=== PATIENT | female | born 1955 | race Caucasian/White ===

== ENCOUNTER 2016-12-22 01:38 | Inpatient (IN) | payer MEDICARE ==
--- NOTE | ~2016-12-22 | A ---
[facility] Nutrition Therapy DATE: 12/25/16 Patient: YOLANDE MCRAE Physician: GEORGIE Address: [address] Room/Bed: [address], Zip: [place] [address] Admit Date: 12/22/16 Date of : 57 Height: Weight: 119 54.43 NUTRITIONAL ASSESSMENT: REASON: CONSULT "LARGE WOUND, LOW PROTEIN, MULTI MED ISSUES" PATIENT ADMITTED FOR PSYCHOSIS AND DELUSIONS PMH: VIT B12 DEF, HEP C, COPD, CIRRHOSIS, HYPOTHYROIDISM, CHRONIC PAIN, QUESTIONABLE CVA AND KS IN 2013, CHOLECYSTECTOMY, HTN Anthropometrics: HT: 5'4", WT: 119#, BMI: 19.8, %IBW: 99 Labs: 12/24/16 - NA: 131, ALB: 3.4, AST: 92 Meds: COGENTIN, ABILIFY, HALOPERIDOL, KLOR-CON, SYNTHROID, FUROSEMIDE, VALIUM, CIPRO Assessment: CHART REVIEWED, EVENTS NOTED. PATIENT IS A 61 Y/O FEMALE ADMITTED FOR PSYCHOSIS AND DELUSIONS. SHE PRESENTED WITH BIZARRE AND ERRATIC BEHAVIORS, DELUSIONAL, AND PARANOID. PATIENT IS CURRENTLY ON SSI, LIVES WITH HER AND SISTER, AND DENIES SUBSTANCE ABUSE. PATIENT IS NOTED TO BE A POOR HISTORIAN, AND SHE HAS BEEN NON-COMPLIANT WITH MEDICATIONS PRIOR TO ADMIT D/T AMS. PER NEEDS ASSESSMENT PATIENT STATED A FAIR APPETITE WITH A 10# WEIGHT LOSS X LAST FEW WEEKS, AND HAS NOT BEEN SLEEPING WELL. WEIGHT HX PER [facility] SHOWS A STABLE WEIGHT OVER LAST YEAR. THIS RD DISCUSSED PATIENT WITH NURSING. NURSING REPORTED PATIENT HAS A UTI AND A WOUND TO HER LEG, WHICH HAS NOT HEALED AND IS CURRENTLY INFECTED. SHE IS ON ANTIBIOTICS. WOUND TO PATIENT'S LEG WAS DESCRIBED A LARGE GASH AND HAD NOT BEEN STAGED. THERE IS NO FURTHER SKIN BREAKDOWN NOTED ATT. PATIENT NEEDS PROMPTING TO EAT AND SHE HAS HAD FAIR PO INTAKES SINCE ADMIT. AT TIMES SHE WILL CLAIM THAT THE FOOD AND TRAY ISN'T HERS AND THAT SOMEONE ELSE'S TRAY WAS BROUGHT TO HER. PATIENT'S CURRENT PSYCH MEDS, FUROSEMIDE, AND SYNTHROID MAY CAUSE WEIGHT AND APPETITE FLUCTUATIONS. THIS RD WAS ASKED TO ASSESS PATIENT D/T LOW PROTEIN. LABS ON 12/24/16 INDICATED AN ALBUMIN LEVEL OF 3.4, WHICH IS NOT SIGNIFICANTLY DECREASED. A NORMAL ALBUMIN LEVEL IS 3.5-5.0, PATIENT'S TOTAL PROTEIN WAS WNL, AND CURRENT RESEARCH INDICATES THAT ALBUMIN LEVELS DO NOT INDICATE NUTRITIONAL STATUS. PATIENT'S SODIUM WAS 131, WHICH IS LOW. THIS COULD BE CAUSED BY DIURETIC USE AND WATER RETENTION. PATIENT'S BMI IS WITHIN A HEALTHY RANGE OF 19-25 AND SHE IS 99% OF HER IBW. PATIENT IS CURRENTLY ON A REGULAR DIET WITH LARGE PORTION ENTREES, AND SHE RECEIVES ENSURE TID. THERE IS CURRENTLY NO C/O N/V/D OR ANY OTHER GI ISSUES NOTED ATT. Dx: INADEQUATE NUTRIENT INTAKE R/T CURRENT CONDITION, DX AEB FAIR PO INTAKE AND APPETITE, SELF-REPORTED WEIGHT LOSS Intervention: 1. REGULAR DIET, 2. SUPPLEMENTATION, 3. MEDS PER MD, 4. PSYCH [facility] Nutrition Therapy DATE: 12/25/16 Patient: YOLANDE Munroe CLEMENTINA Physician: GEORGIE Address: [address] [place] [address] Room/Bed: [address], Zip: [place] [address] Admit Date: 12/22/16 Date of : [birth year] Height: Weight: 119 54.43 Monitoring, Evaluation and Goals: 1. ADEQUATE PO INTAKES >50% OF MEALS 2. PREVENT, CORRECT MICRO/MACRO NUTRIENT DEFICIENCIES 3. MAINTAIN CURRENT WEIGHT, PREVENT WEIGHT LOSS MONITOR: WEIGHTS, LABS, PO/FLUID INTAKES Recommendations: 1. CONTINUE REGULAR DIET WITH ENSURE TID TOLERATED. RECOMMEND D/CING LARGE PORTION ENTREES D/T NO NUTRITIONAL NEED FOR AN EXCESSIVE AMOUNT OF CALORIES, AND PATIENT'S FAIR APPETITE. PATIENT MAY BE OVERWHELMED BY LARGER PORITONS ON TRAY. IF SHE HAS C/O HUNGER, OFFER SNACKS BETWEEN MEALS 2. CONTINUE TO PROMPT PATIENT AND ENCOURAGE ADEQUATE PO AND FLUID INTAKES 3. OBTAIN WEIGHTS ROUTINELY (EVERY 3-4 DAYS) 4. OBTAIN NEW BMP TO ASSESS PATIENT'S NUTRITIONAL STATUS 5. CONSIDER ADDING A MVI TO PATIENT'S MEDICATION REGIMEN FOR ADDED NUTRIENT SUPPORT AND TO PROMOTE WOUND HEALING RD TO F/U PER PROTOCOL AND PRN R/T PATIENT MILD/MODERATELY COMPROMISED Respectfully, MAHESH DAWSON, RD, LD Food and Nutritional Services Psychiatric cc: client file
--- NOTE | ~2016-12-22 | CO ---
Unit #: [id number] #: [id number] Patient: NINI MCRAE [id number] [place] [address] [id number] I MR#: [id number] NAME: NINI MCRAE. ROOM: 15 Age: 61 Sex: F Admission Date: 12/22/2016 : 1955 Attending Physician: Ney Reyes M.D. Primary Care Physician: Codi Alonso M.D. Consultation Date: 12/24/2016 CONSULTATION REPORT SUBJECTIVE Nini is a 61-year-old with an abnormal urinalysis upon admission. We have been asked to assess and treat. She has had complaints of urgency and frequency. There have been no recorded increased temperatures. OBJECTIVE GENERAL: Alert, well nourished, in no apparent distress. VITAL SIGNS: Blood pressure 130/70, heart rate 80, respirations 16, temperature 98.6. ABDOMEN: Soft, nontender. BACK: Negative CVA tenderness. DIAGNOSTIC STUDIES LABORATORY RESULTS: Urinalysis; 4+ bacteria, 10 to 25 wbc's. ASSESSMENT Urinary tract infection. PLAN Cipro 500 mg one p.o. b.i.d. x3 days. We were also asked to see her concerning her skin tear. This was addressed under her H and P dated 12/22/2016. Dictated by... Rosi Lizama P.A.-C. for Bryant Armijo/dannielle TD: 12/27/2016 01:32 JOB #: [id number] Unit #: [id number] #: [id number] Patient: NINI MCRAE CONSULTATION REPORT Page 1 of 1 X Rosi Lizama CONSULTATION REPORT
--- NOTE | ~2016-12-22 | PN ---
Unit #: [id number] #: [id number] Patient: NINI MCRAE [id number] [facility] [address] [place] [address] [id number] I MR#: [id number] NAME: NINI MCRAE. ROOM: P122 Age: 61 Sex: F Admission Date: 12/22/2016 : 1955 Attending Physician: Ney Reyes M.D. Admitting Physician: Ney Reyes M.D. Primary Care Physician: Bryant Murguia PROGRESS NOTES DATE 12/27/2016 DISCUSSION Nini Mcrae is a 61-year-old female, seen on 12/27/2016. The patient interviewed, chart reviewed, and obtained information from the nursing staff. The patient was compliant and cooperative. Mood sad and dysphoric, flat affect, and guarded. The patient's vital signs stable. The patient continues to be delusional, paranoid, isolative, and guarded. The patient compliant with medication. No aggressive behavior. REVIEW OF SYSTEMS Complete review of systems unremarkable. MENTAL STATUS EXAMINATION General appearance: Patient dressed in hospital attire. Attention span and concentration, poor. Orientation in place and person. Mood and affect, labile. Speech, rapid. Thought process, circumstantial. The patient denied any thoughts of harming self or others but guarded and paranoid, delusional, paranoid delusions. Recent and remote memory, poor. Insight and judgment, poor. DIAGNOSIS Schizophrenia, chronic paranoid type. ASSESSMENT/PLAN Advised to continue with the current medication and therapeutic protocol and will monitor response to medication, and make further adjustment of medication. Dictated by... Bryant Horowitz/graciela TD: 12/30/2016 07:41 Unit #: [id number] #: [id number] Patient: NINI MCRAE JOB #: [id number] DARNELL PROGRESS NOTES Page 1 of 1 X Ney Reyes MD PROGRESS NOTE
--- NOTE | ~2016-12-22 | CO ---
Unit #: [id number] #: [id number] Patient: NINI MCRAE [id number] [place] [address] [id number] I MR#: [id number] NAME: NINI MCRAE. ROOM: 32 Age: 61 Sex: F Admission Date: 12/22/2016 : 1955 Attending Physician: Ney Reyes M.D. Primary Care Physician: Codi Alonso M.D. Consultation Date: 01/01/2017 CONSULTATION REPORT SUBJECTIVE Nini is a 61-year-old, who was admitted with a significant skin tear along her right palm. On 12/31/2016, nursing staff was concerned because there was increased redness and swelling in the left leg. We were asked to examine her again. Please see consult note dated 12/31/2016. Our plan at that time was to continue current treatment of Medihoney and dressing daily and continue Levaquin which was increased to 750 mg p.o. daily on the . We would continue to follow. The following morning staff received the order from attending psychiatrist and the patient was sent to the emergency room because of the redness and swelling in her leg. After IV infusion of vancomycin and collection of appropriate blood work, she was sent back to [facility]. Lab work in the emergency room showed a WBC 4.1, H/H 11.6/35.1. X-ray of the left tib-fib was within normal limits. Blood cultures showed no growth after 24 hours. At this time, we will continue Medihoney to the wound and cover with Mepilex dressing. We will also apply a zinc oxide Unna boot and plan to change it every 4 to 5 days. We are doing this to promote healing and reduce the swelling in the affected leg. We will continue to follow. Dictated by... Rosi Lizama P.A.-C. for Bryant Armijo/dannielle TD: 01/03/2017 05:47 JOB #: [id number] CONSULTATION REPORT Page 1 of 1 X Rosi Lizama X CONSULTATION REPORT
--- NOTE | ~2016-12-22 | PN ---
Unit #: [id number] #: [id number] Patient: NINI MCRAE [id number] [facility] [address] [place] [address] [id number] I MR#: [id number] NAME: NINI MCRAE. ROOM: [facility] Age: 61 Sex: F Admission Date: 12/22/2016 : 1955 Attending Physician: Ney Reyes M.D. Admitting Physician: Ney Reyes M.D. Primary Care Physician: Bryant Murguia PROGRESS NOTES DATE OF SERVICE 01/01/2017 DISCUSSION Ms. Nini Mcrae is a 61-year-old female seen on 01/01/2017. The patient interviewed, chart reviewed. Obtained information from nursing staff. The patient dressed in hospital attire. Withdrawn, isolative, guarded. The patient still having delusional thinking. Disorganized thought process. Guarded, paranoid. The patient seclusive, isolative, guarded. Seems to be attending to internal stimuli. Behavior was argumentative, cursing, anger, confused, guarded, paranoid. Complete Review of Systems: Unremarkable. MENTAL STATUS EXAMINATION General Appearance: The patient dressed in hospital attire. Attention span, concentration: Poor. Oriented in place and person. Mood and affect labile. Speech: Rapid. Thought process: Circumstantial. The patient delusional, paranoid. Please see above for detail. Recent and remote memory: Poor. Insight and judgment: Poor. DIAGNOSIS Schizophrenia, chronic, paranoid type. ASSESSMENT/PLAN Advised to continue with current medication and therapeutic protocol. If needed, consider further adjustment of medication. Dictated by... Bryant Horowitz/minerva TD: 01/04/2017 10:36 JOB #: [id number] Unit #: [id number] #: [id number] Patient: NINI MCRAESHILPA PROGRESS NOTES Page 1 of 1 X Ney Reyes MD PROGRESS NOTE
--- NOTE | ~2016-12-22 | HP ---
Unit #: [id number] #: [id number] Patient: NINI MCRAE [id number] [place] [address] [id number] I MR#: [id number] NAME: NINI MCRAE. ROOM: 32 Age: 61 Sex: F Admission Date: 12/22/2016 : 1955 Attending Physician: Ney Reyes M.D. Admitting Physician: Ney Reyes M.D. Primary Care Physician: Codi Alonso M.D. HISTORY AND PHYSICAL HISTORY OF PRESENT ILLNESS Nini is a 61 year old admitted to [address] [place] [address] with psychotic behavior. She is a poor historian so her history is taken from her chart. PAST MEDICAL HISTORY 1. Vitamin B12 deficiency. 2. Hepatitis C treated by Dr. Chapin. 3. Chronic pain 4. COPD 5. Cirrhosis. 6. Hypothyroidism 7. Questionable stroke and CA, 2013. PAST SURGICAL HISTORY 1. Umbilical hernia repair. 2. Bladder repair. 3. Cholecystectomy. ALLERGIES Sulfa, penicillin, fish, morphine, Celexa. SOCIAL HISTORY Smokes one-half pack per day. Denies alcohol and illicit drug use. FAMILY HISTORY Medically noncontributory. REVIEW OF SYSTEMS She does not answer questions appropriately. There are no reports of nausea, vomiting or diarrhea. She has had no cough or increased temperature. CURRENT MEDICATIONS 1. Cogentin 1 mg b.i.d. 2. Abilify 10 mg b.i.d. 3. Haldol 5 mg b.i.d. 4. Colace 100 mg b.i.d. 5. KCL 20 mEq daily 6. Advair Diskus b.i.d. 7. Florastor 250 mg b.i.d. 8. Synthroid 0.025 mg q day 9. Lasix 40 mg b.i.d. Unit #: [id number] #: [id number] Patient: NINI MCRAE 10. Ibuprofen p.r.n. 11. Proventil inhaler p.r.n. 12. Roxicodone 10 1 p.o. q.i.d. p.r.n. 13. Valium 5 mg b.i.d. p.r.n. 14. Lioresal 20 mg b.i.d. p.r.n. 15. Milk of Magnesia p.r.n. 16. Maalox p.r.n. 17. Tylenol p.r.n. PHYSICAL EXAMINATION GENERAL: Alert, well-nourished, in no apparent distress. VITAL SIGNS: Blood pressure 136/80, heart rate 80, respirations 16, temperature 98.6. WEIGHT: 119 pounds. HEIGHT: 5'4". SKIN: Warm and dry without rash or lesion. HEENT: Normocephalic. TMs not viewed. Oral and nasal passages clear. Conjunctivae clear. Pupils equal, round and reactive to light and accommodation. Extraocular movements intact. NECK: Supple without lymphadenopathy or thyromegaly. HEART: Regular rate and rhythm without murmur. LUNGS: Clear. ABDOMEN: Soft, nontender. : Not done. EXTREMITIES: No evidence of cyanosis, clubbing or edema. Moves all extremities without focal deficit. NEUROLOGICAL: Unable to complete extended exam. She does move all extremities without focal deficit. Hand psychiatric technician is equal and gait is normal. IMPRESSION Psychiatric admission. RECOMMENDATIONS PSYCHIATRIC: Per psychiatrist. MEDICAL: I see no contraindications to participating in facility's activities. MEDICAL PROGNOSIS Good. MEDICAL CONDITION Stable. Dictated by... Rosi Lizama P.A.-C. for Bryant Armijo/damien TD: 12/23/2016 00:16 JOB #: [id number] Unit #: [id number] #: [id number] Patient: NINI MCRAE HISTORY AND PHYSICAL Page 1 of 1 X Rosi Lizama HISTORY AND PHYSICAL
--- NOTE | ~2016-12-22 | PN ---
Unit #: [id number] #: [id number] Patient: NINI MCRAE [id number] [facility] [address] [place] [address] [id number] I MR#: [id number] NAME: NINI MCRAE. ROOM: 32 Age: 61 Sex: F Admission Date: 12/22/2016 : 1955 Attending Physician: Ney Reyes M.D. Admitting Physician: Ney Reyes M.D. Primary Care Physician: Bryant Murguia PROGRESS NOTES DATE OF SERVICE: 01/06/2017 DISCUSSION Ms. Nini Mcrae is a 61-year-old female, seen on 01/06/2017. The patient interviewed, chart reviewed, and obtained information from nursing staff. The patient was tearful, sad, dysphoric, anxious, but compliant and cooperative. The patient dressed in hospital attire. Mood was sad, dysphoric, flat affect. The patient is compliant with medication, still having residual delusions. The patient, according to staff report, was cooperative. Vital signs stable. The patient still needs encouragement, thought circumstantial, attention seeking, redirectable, but denied any suicidal or homicidal ideation or any auditory or visual hallucination. Complete review of systems unremarkable. MENTAL STATUS EXAMINATION General appearance, the patient dressed casually. Attention span and concentration, fair. Oriented in place and person. Mood and affect, labile. Speech, rapid. Thought process, circumstantial. Association, guarded, but denied any thoughts of harming self or others. Recent and remote memory, poor. Insight and judgment, poor. DIAGNOSIS Schizophrenia, chronic paranoid type. ASSESSMENT AND PLAN Advised to continue with current medication and therapeutic protocol. If needed, consider further adjustment of medication. Plan is to consider discharge this week and we will discuss with family. Dictated by... Ney eRyes M.D. LETTY/dannielle TD: 01/06/2017 17:33 JOB #: [id number] Unit #: [id number] #: [id number] Patient: NINI MCRAE PROGRESS NOTES Page 1 of 1 X Ney Reyes MD PROGRESS NOTE
--- NOTE | ~2016-12-22 | CO ---
Unit #: [id number] #: [id number] Patient: NINI MCRAE [id number] [place] [address] [id number] I MR#: [id number] NAME: NINI MCRAE. ROOM: 15 Age: 61 Sex: F Admission Date: 12/22/2016 : 1955 Attending Physician: Ney Reyes M.D. Primary Care Physician: Codi Alonso M.D. Consultation Date: 12/25/2016 CONSULTATION REPORT SUBJECTIVE Nini is a 61-year-old who was reported to have a discharge from her breast. This was reported by one nurse. We have been asked to assess and give recommendations. She has no known breast pathology. Her mammogram history is not known. She has had no recorded increased temperatures. OBJECTIVE GENERAL: Alert, confused 61-year-old, appearing much older than her stated age, otherwise no apparent distress. VITAL SIGNS: Blood pressure 130/60, heart rate 92, respirations 16, T-max 98.6. BREASTS: Skin is intact without rashes or lesions. Symmetrical. Minimal tenderness in the left breast, but no discharge is noted from either nipple. ASSESSMENT Normal exam. PLAN The patient can follow up with PCP/THRASHER FEEDER for complete evaluation. Dictated by... Rosi Lizama P.A.-C. for Bryant Armijo/dannielle TD: 12/27/2016 02:37 JOB #: [id number] CONSULTATION REPORT Page 1 of 1 X Rosi Lizama X CONSULTATION REPORT
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
--- NOTE | ~2016-12-22 | PN ---
Unit #: [id number] #: [id number] Patient: NINI MCRAE [id number] [facility] [address] [place] [address] [id number] MR#: [id number] NAME: NINI MCRAE. ROOM: 15 Age: 61 Sex: F Admission Date: 12/22/2016 : 1955 Attending Physician: Ney Reyes M.D. Admitting Physician: Ney Reyes M.D. Primary Care Physician: Bryant Murguia PROGRESS NOTES DATE 12/26/2016 DISCUSSION Ms. Nini Mcrae is a 61-year-old female seen on 12/26/2016. Patient continues to have poor boundaries, going into other peoples rooms, guarded, paranoid. Patient needing redirection. Patient having difficulty sitting in group. Continues to be delusional, paranoid. Complete review of system unremarkable. MENTAL STATUS EXAMINATION General appearance, patient dressed casually in hospital attire. Attention span, concentration poor. Orientation in place and person. Mood and affect was labile. Speech rapid. Thought process circumstantial. Patient denied any thoughts of harming self or others but guarded, paranoid, delusional. Recent and remote memory poor. Insight and judgement poor. DIAGNOSIS Schizophrenia, chronic paranoid type. ASSESSMENT/PLAN Advised to continue with current medication and therapeutic protocol. Will monitor response to medication and make further adjustment of medication. Dictated by... Bryant Horowitz/che TD: 12/27/2016 17:31 JOB #: [id number] Unit #: [id number] #: [id number] Patient: NINI MCRAE PROGRESS NOTES Page 1 of 1 X Ney Reyes MD X PROGRESS NOTE
--- NOTE | ~2016-12-22 | PN ---
Unit #: [id number] #: [id number] Patient: NINI MCRAE [id number] [facility] [address] [place] [address] [id number] I MR#: [id number] NAME: NINI MCRAE. ROOM: 32 Age: 61 Sex: F Admission Date: 12/22/2016 : 1955 Attending Physician: Ney Reyes M.D. Admitting Physician: Ney Reyes M.D. Primary Care Physician: Bryant Murguia PROGRESS NOTES DATE OF SERVICE: 01/02/2017 DISCUSSION Ms. Nini Mcrae is a 61-year-old female, seen on 01/02/2017. The patient interviewed, chart reviewed, and obtained information from nursing staff. The patient's thoughts were more goal directed. The patient was compliant, cooperative, redirectable. Vital signs stable; temperature 97.8, respirations 18, and blood pressure 83/52. Admitted psychosis, guarded, paranoid. Showing some improvement in her thought process. Denied any thoughts of harming self or others. The patient's behavior was argumentative. Complete review of systems unremarkable. MENTAL STATUS EXAMINATION General appearance; the patient dressed casually, in hospital attire. Mood and affect were labile. Speech was rapid. Thought process, circumstantial. Thought content, the patient denied any thoughts of harming self or others, but guarded, paranoid, delusional. Recent and remote memory, poor. Insight and judgment, poor. DIAGNOSIS Schizophrenia, chronic paranoid type. ASSESSMENT/PLAN Plan is to continue with current medication with a plan to consider discharge next week on Friday if the patient continues to make some progress. Dictated by... Bryant Horowitz/dannielle TD: 01/02/2017 22:31 JOB #: [id number] Unit #: [id number] #: [id number] Patient: NINI MCRAE PROGRESS NOTES Page 1 of 1 X Ney Reyes MD X PROGRESS NOTE
--- NOTE | ~2016-12-22 | PN ---
Unit #: [id number] #: [id number] Patient: NINI MCRAE [id number] [facility] [address] [place] [address] [id number] I MR#: [id number] NAME: NINI MCRAE. ROOM: 32 Age: 61 Sex: F Admission Date: 12/22/2016 : 1955 Attending Physician: Ney Reyes M.D. Admitting Physician: Ney Reyes M.D. Primary Care Physician: Bryant Murguia PROGRESS NOTES DATE 01/04/2017 DISCUSSION Nini Mcrae is a 61-year-old female, seen on 01/04/2017. The patient interviewed, chart reviewed, and obtained information from the nursing staff. The patient's mood sad and dysphoric, flat affect, guarded. The patient's vital signs, 98.4, 83, 16, and 101/59. The patient continues to be isolative, flat affect, sad and dysphoric. REVIEW OF SYSTEMS Complete review of systems unremarkable. MENTAL STATUS EXAMINATION General appearance: Patient dressed casually. Attention span and concentration, fair. Oriented to place and person. Mood and affect, sad and dysphoric. Speech, monotone. Thought process, concrete. The patient denied any thoughts of harming self or others but still somewhat guarded, paranoid. Recent and remote memory, poor. Insight and judgment, poor. DIAGNOSIS Schizophrenia, paranoid type. ASSESSMENT/PLAN Advised to continue with the current medication and therapeutic protocol and if needed consider further adjustment of medication. Dictated by... Bryant Horowitz/graciela TD: 01/07/2017 06:15 JOB #: [id number] Unit #: [id number] #: [id number] Patient: NINI MCRAESHILPA PROGRESS NOTES Page 1 of 1 X Ney Reyes MD PROGRESS NOTE
--- NOTE | ~2016-12-22 | PN ---
Unit #: [id number] #: [id number] Patient: NINI MCRAE [id number] [facility] [address] [place] [address] [id number] I MR#: [id number] NAME: NINI MCRAE. ROOM: 32 Age: 61 Sex: F Admission Date: 12/22/2016 : 1955 Attending Physician: Ney Reyes M.D. Admitting Physician: Ney Reyes M.D. Primary Care Physician: Bryant Murguia PROGRESS NOTES DATE OF SERVICE: 01/03/2017 DISCUSSION Ms. Nini Mcrae is a 61-year-old female, seen on 01/03/2017. The patient interviewed, chart reviewed, and obtained information from nursing staff. The patient was sad, depressed, flat, withdrawn, dressed in hospital attire. The patient's mood was labile, still confusion, paranoia, mood lability. The patient is still having delusions. Vital signs stable; temperature 98.4, pulse 83, respirations 16, and blood pressure 101/59. The patient was tearful, sad, and dysphoric. Complete review of systems unremarkable. MENTAL STATUS EXAMINATION General appearance, the patient is dressed in hospital attire. Hygiene and grooming, poor. Attention span and concentration, poor. Oriented in place and person. Mood and affect, labile. Speech, rapid. Thought process, circumstantial. The patient denied any thoughts of harming self or others, but having delusions, paranoia, mood lability. Recent and remote memory, poor. Insight and judgment, poor. DIAGNOSIS Schizophrenia, chronic paranoid type. ASSESSMENT AND PLAN Advised to continue with current medication and therapeutic protocol. If needed, consider further adjustment of medication. Dictated by... Bryant Horowitz/dannielle TD: 01/03/2017 17:30 JOB #: [id number] Unit #: [id number] #: [id number] Patient: NINI MCRAE PROGRESS NOTES Page 1 of 1 X Ney Reyes MD PROGRESS NOTE
--- NOTE | ~2016-12-22 | PN ---
Unit #: [id number] #: [id number] Patient: NINI MCRAE [id number] [facility] [address] [place] [address] [id number] I MR#: [id number] NAME: NINI MCRAE. ROOM: P122 Age: 61 Sex: F Admission Date: 12/22/2016 : 1955 Attending Physician: Ney Reyes M.D. Admitting Physician: Ney Reyes M.D. Primary Care Physician: Bryant Murguia PROGRESS NOTES DATE 12/28/2016 DISCUSSION Ms. Nini Mcrae is a 61-year-old white female seen on 12/28/2016. The patient interviewed, chart reviewed. Obtained information from nursing staff. The patient was compliant and cooperative redirectable. Mood sad, dysphoric, flat affect. Vital signs 97.8, 81, 16, 96/53. The patient continues to be guarded, paranoid, but cooperative no aggressive behavior. Tolerating medication fairly well but still having delusion, paranoia, isolative. Complete review of systems unremarkable. MENTAL STATUS EXAMINATION General appearance, the patient dressed in hospital attire. Attention span and concentration was poor. Oriented to place and person. Mood and affect sad, dysphoric, flat. Speech rapid, circumstantial. Thought process the patient denied any thoughts of harming self or others but delusional paranoid (1)____ delusional. Recent and remote memory poor. Insight and judgement poor. DIAGNOSES Schizophrenia chronic paranoid type. ASSESSMENT/PLAN Advise to continue with current medication and therapeutic protocol. We will monitor response to medication and make further adjustment of medication. Dictated by... Bryant Horowitz/damien TD: 12/31/2016 04:49 JOB #: [id number] Unit #: [id number] #: [id number] Patient: NINI MCRAE PROGRESS NOTES Page 1 of 1 X Ney Reyes MD PROGRESS NOTE
--- NOTE | ~2016-12-22 | PN ---
Unit #: [id number] #: [id number] Patient: NINI MCRAE [id number] [facility] [address] [place] [address] [id number] I MR#: [id number] NAME: NINI MCRAE ROOM: 15 Age: 61 Sex: F Admission Date: 12/22/2016 : 1955 Attending Physician: Ney Reyes M.D. Admitting Physician: Ney Reyes M.D. Primary Care Physician: Bryant Murguia PROGRESS NOTES DATE 12/24/2016 DISCUSSION Nini Mcrae is a 61-year-old female seen on 12/24/2016. Patient interviewed. Chart reviewed. Obtained information from nursing staff. Patient unable to give any reliable information, disorganized thought process, delusional, paranoid, still feeling people are against her, after her. Patient isolative, guarded, seclusive, attending to internal stimuli. Patient was alert, oriented in time, place and person but still paranoid. Attended some groups. Patient currently on MIW. Complete review of system unremarkable. MENTAL STATUS EXAMINATION General appearance, patient dressed casually. Attention span, concentration poor. Oriented in place and person. Mood and affect was sad, dysphoric. Speech monotone. Thought process concrete. Patient denied any thoughts of harming self or others but guarded, paranoid, delusional. Recent and remote memory poor. Insight and judgement poor. DIAGNOSES 1. Psychosis NOS. 2. Schizophrenia, paranoid type. ASSESSMENT/PLAN Advised to continue with current medication and therapeutic protocol. Will monitor response to medication and make further adjustment of medication and monitor for compliance. Dictated by... Bryant Horowitz/che TD: 12/25/2016 17:53 JOB #: [id number] Unit #: [id number] #: [id number] Patient: NINI MCRAESHILPA PROGRESS NOTES Page 1 of 1 X Ney Reyes MD PROGRESS NOTE
--- NOTE | ~2016-12-22 | PN ---
Unit #: [id number] #: [id number] Patient: NINI MCRAE [id number] [facility] [address] [place] [address] [id number] I MR#: [id number] NAME: NINI MCRAE. ROOM: 32 Age: 61 Sex: F Admission Date: 12/22/2016 : 1955 Attending Physician: Ney Reyes M.D. Admitting Physician: Ney Reyes M.D. Primary Care Physician: Bryant Murguia PROGRESS NOTES DATE OF SERVICE 12/31/2016 DISCUSSION Nini Mcrae is a 61-year-old female seen on 12/31/2016. The patient continues to be delusional, paranoid, mood labile, sad, dysphoric. The patient reported having pain in her leg and then noticed swelling in her legs. The patient has an old wound. Subsequently the patient was sent to [facility] for further treatment. The patient returned with antibiotic. The patient continues to have above-mentioned symptom. Complete Review of Systems: Unremarkable. MENTAL STATUS EXAMINATION General Appearance: The patient dressed in hospital attire. Attention span, concentration: Poor. Orientation in place and person. Mood and affect labile. Speech: Rapid. Thought process: Circumstantial, guarded, delusional, paranoid. Disorganized behavior. Thought process: Argumentative. Recent and remote memory: Poor. Insight and judgment: Poor. DIAGNOSIS Schizophrenia, chronic, paranoid type. ASSESSMENT/PLAN Advised to continue with current medication and therapeutic protocol. If needed, consider further adjustment of medication. Dictated by... Bryant Horowitz/minerva TD: 01/02/2017 10:02 JOB #: [id number] Unit #: [id number] #: [id number] Patient: NINI MCRAE PROGRESS NOTES Page 1 of 1 X Ney Reyes MD PROGRESS NOTE
--- NOTE | ~2016-12-22 | PN ---
Unit #: [id number] #: [id number] Patient: NINI MCRAE [id number] [facility] [address] [place] [address] [id number] I MR#: [id number] NAME: NINI MCRAE. ROOM: P122 Age: 61 Sex: F Admission Date: 12/22/2016 : 1955 Attending Physician: Ney Reyes M.D. Admitting Physician: Ney Reyes M.D. Primary Care Physician: Bryant Murguia PROGRESS NOTES DATE 12/29/2016 DISCUSSION Nini Mcrae is a 61-year-old female, seen on 12/29/2016. The patient interviewed, chart reviewed, and obtained information from the nursing staff. The patient continues to be withdrawn, isolative, guarded, and paranoid. Vital signs, 97.4, 93, 16, and 184/51. The patient is compliant with medication but still having loose association, guarded, paranoid. Attending to internal stimuli, and delusional. REVIEW OF SYSTEMS Complete review of systems unremarkable. MENTAL STATUS EXAMINATION General appearance: Patient dressed casually in hospital attire. Attention span and concentration, poor. Oriented to place and person. Mood and affect, labile. Speech, rapid. Thought process, circumstantial, guarded. The patient denied any thoughts of harming self or others but guarded, paranoid. Recent and remote memory, poor. Insight and judgment, poor. DIAGNOSIS Schizophrenia, chronic paranoid type. ASSESSMENT/PLAN Advised to continue with the current medication and therapeutic protocol and will monitor response to medication, and make further adjustment of medication. Dictated by... Bryant Horowitz/graciela Unit #: [id number] #: [id number] Patient: NINI MCRAE TD: 12/31/2016 08:15 JOB #: [id number] [facility] PROGRESS NOTES Page 1 of 1 X Ney Reyes MD PROGRESS NOTE
--- NOTE | ~2016-12-22 | CO ---
Unit #: [id number] #: [id number] Patient: NINI MCRAE [id number] [place] [address] [id number] I MR#: [id number] NAME: NINI MCRAE. ROOM: 32 Age: 61 Sex: F Admission Date: 12/22/2016 : 1955 Attending Physician: Ney Reyes M.D. Primary Care Physician: Codi Alonso M.D. Consultation Date: 12/30/2016 CONSULTATION REPORT SUBJECTIVE Nini is a 61-year-old who was admitted with a fairly significant skin tear to the right palm. We have been treating it with soap and water, applying Medihoney and a clean dressing daily. We have been asked to take a look again tonight. Nursing staff was concerned that there is increased redness and swelling in the legs. She has had no increased recorded temperatures. The patient does complain of pain in the leg so much to the point that she refuses to walk to get her meals and is having everything brought into her room. OBJECTIVE GENERAL: Alert, thin, in no apparent distress. VITAL SIGNS: Blood pressure 100/68, heart rate 80, respirations 16, temperature 98.6, weight 119, and height 5 feet 4 inches. SKIN: Warm, dry, dark across her legs and arms. Significant skin tear noted along the right palm. There is some increased redness and swelling. No heat or odor is noted. There is no calf swelling or tenderness. Bed of the wound is clean. ASSESSMENT Significant skin tears healing by secondary intention. PLAN Continue to keep the area clean with soap and water. Apply Medihoney and clean dressing daily. We will consider Unna boot. This will keep the swelling to a minimum. There was also concern voiced by nursing staff that she is manipulating the wound. This will also keep her out of the wound and allowed to heal. Dictated by... Rosi Lizama P.A.-C. for Bryant Armijo/dannielle TD: 12/31/2016 17:40 JOB #: [id number] Unit #: [id number] #: [id number] Patient: NINI MCRAE CONSULTATION REPORT Page 1 of 1 X Rosi Lizama CONSULTATION REPORT
--- NOTE | ~2016-12-22 | DS ---
Unit #: [id number] #: [id number] Patient: YOLANDE MCRAE [id number] [place] [address] [id number] MR#: [id number] NAME: YOLANDE MCRAE. ROOM: [facility] Age: 61 Sex: F Admission Date: 12/22/2016 : 1955 Discharge Date: 01/07/2017 Attending Physician: Ney Reyes M.D. Primary Care Physician: Codi Alonso M.D. DISCHARGE SUMMARY REASON FOR ADMISSION Psychosis. DIAGNOSTIC STUDIES LABORATORY RESULTS: Unremarkable. HOSPITAL COURSE The patient was admitted to inpatient unit on 12/22/2016 and discharged on 01/07/2017. The patient was treated with behavior management, medication management, psychoeducation, psychotherapy, structured milieu, and also followed by medical doctor for her medical condition. The patient responded well. Subsequently, the patient was discharged with a plan to follow up in outpatient program. DISCHARGE MEDICATIONS Klor-Con 20 mEq to replacement, Colace 100 mg daily for constipation, Abilify 20 mg daily for psychosis, Cogentin 1 mg b.i.d. for EPS symptom, Cleocin 300 mg t.i.d. for 5 days for infection, Lasix 40 mg b.i.d. for hypertension, Lioresal 20 mg for back pain, Proventil 2 puffs q.6 hours shortness of air, Advair Diskus 2 puffs b.i.d. for shortness of air, Valium 5 mg b.i.d. for anxiety. DISCHARGE DIAGNOSES Psychiatric: 1. Schizophrenia, chronic paranoid type, F20.0. 2. Rule out bipolar mood disorder, not otherwise specified. Secondary diagnosis: Deferred. Medical diagnosis: Please refer to H and P. Stressors: Psychosocial stressors. DISCHARGE INSTRUCTIONS The patient to follow up in outpatient clinic as per licensed master social worker. CONDITION ON DISCHARGE The patient was pleasant and cooperative. PROGNOSIS Guarded. DIET AND ACTIVITY As tolerated. Unit #: [id number] #: [id number] Patient: YOLANDE MCRAE Dictated by... Bryant Horowitz/dannielle TD: 01/07/2017 23:34 JOB #: [id number] DISCHARGE SUMMARY Page 1 of 1 X Ney Reyes MD DISCHARGE SUMMARY
--- NOTE | ~2016-12-22 | PN ---
Unit #: [id number] #: [id number] Patient: NINI MCRAE [id number] [facility] [address] [place] [address] [id number] MR#: [id number] NAME: NINI MCRAE. ROOM: 32 Age: 61 Sex: F Admission Date: 12/22/2016 : 1955 Attending Physician: Ney Reyes M.D. Admitting Physician: Ney Reyes M.D. Primary Care Physician: Bryant Murguia PROGRESS NOTES DATE OF SERVICE: 01/05/2017 DISCUSSION Ms. Nini Mcrae is a 61-year-old female, seen on 01/05/2017. The patient interviewed, chart reviewed, and obtained information from nursing staff. The patient was compliant and cooperative. Mood was sad, dysphoric, flat affect, tearful. She reported that she wanted to go home today. The patient's vital signs stable; temperature 97.9, pulse 97, respirations 20, and blood pressure 101/52. The patient's thoughts were more goal directed. Compliant with medication. Able to carry out fair conversation. Complete review of systems unremarkable. MENTAL STATUS EXAMINATION General appearance, the patient dressed in hospital attire. Attention span and concentration were fair. Oriented in time, place, and person. Mood and affect were labile, tearful. Speech, monotone. Thought process, concrete. The patient denied any thoughts of harming self or others, but somewhat guarded. Recent and remote memory, poor. Insight and judgment, poor. DIAGNOSIS Schizophrenia, chronic paranoid type. ASSESSMENT AND PLAN Advised to continue with current medication and therapeutic protocol. If needed, consider further adjustment of medication. Dictated by... Bryant Horowitz/dannielle TD: 01/06/2017 20:04 JOB #: [id number] Unit #: [id number] #: [id number] Patient: NINI MCRAE PROGRESS NOTES Page 1 of 1 X Ney Reyes MD X PROGRESS NOTE
--- NOTE | ~2016-12-22 | CO ---
Unit #: [id number] #: [id number] Patient: NINI MCRAE [id number] [place] [address] [id number] MR#: [id number] NAME: NINI MCRAE. ROOM: 32 Age: 61 Sex: F Admission Date: 12/22/2016 : 1955 Attending Physician: Ney Reyes M.D. Primary Care Physician: Codi Alonso M.D. Consultation Date: 12/22/2016 CONSULTATION REPORT Nini is a 61-year-old. She was seen for her admission H and P, and areas on her legs were described. Please see H and P dated 12/22/2016. We also restarted her Synthroid and she will need to follow up with PCP. Dictated by... Rosi Lizama P.A.-C. for Bryant Armijo/dannielle TD: 12/23/2016 00:18 JOB #: [id number] CONSULTATION REPORT Page 1 of 1 X Rosi Lizama CONSULTATION REPORT
--- NOTE | ~2016-12-22 | PN ---
Unit #: [id number] #: [id number] Patient: NINI MCRAE [id number] [facility] [address] [place] [address] [id number] MR#: [id number] NAME: NINI MCRAE. ROOM: 32 Age: 61 Sex: F Admission Date: 12/22/2016 : 1955 Attending Physician: Ney Reyes M.D. Admitting Physician: Ney Reyes M.D. Primary Care Physician: Bryant Murguia PROGRESS NOTES DATE 12/30/2016 DISCUSSION Nini Mcrae is a 61-year-old female, seen on 12/30/2016. The patient interviewed, chart reviewed, and obtained information from the nursing staff. The patient continues to be guarded, withdrawn, isolative, paranoid, delusional, but no aggressive behavior. The patient seclusive. REVIEW OF SYSTEMS Complete review of systems unremarkable. MENTAL STATUS EXAMINATION General appearance: Patient thin-built. Hygiene and grooming poor. Attention span and concentration, poor. Oriented to place and person. Mood and affect, sad and dysphoric. Speech, monotone. Thought process, concrete. The patient denied any thoughts of harming self or others but guarded and paranoid. Recent and remote memory, poor. Insight and judgment, poor. DIAGNOSIS Schizophrenia, chronic paranoid type. ASSESSMENT/PLAN Advised to continue with the current medication and therapeutic protocol and if needed consider further adjustment of medication. Dictated by... Bryant Horowitz/graciela TD: 01/01/2017 09:29 JOB #: [id number] Unit #: [id number] #: [id number] Patient: NINI MCRAE PROGRESS NOTES Page 1 of 1 X Ney Reyes MD PROGRESS NOTE
--- NOTE | ~2016-12-22 | HP ---
Unit #: [id number] #: [id number] Patient: NINI MCRAE [id number] [facility] [address] [place] [address] [id number] I MR#: [id number] NAME: NINI MCRAE. ROOM: 32 Age: 61 Sex: F Admission Date: 12/22/2016 : 1955 Attending Physician: Ney Reyes M.D. Admitting Physician: Ney Reyes M.D. Primary Care Physician: Codi Alonso M.D. HISTORY AND PHYSICAL ADDENDUM This is an addendum to history and physical on Nini Mcrae. Date of admission 12/22/2016. SKIN: Warm and dry. Multiple small bruises. She has a significant skin tear along the right palm. There is approximately half dollar sized hematoma along the left palm. Plan will be to keep the area clean with soap and water. Apply Medihoney and clean dressing q day. She has also been noncompliant with her Synthroid. This has been restarted at 0.025 mg q day. She will need to follow up with her PCP upon discharge. Dictated by... Rosi Lizama P.A.-C. for Bryant Armijo/damien TD: 12/23/2016 00:29 JOB #: [id number] HISTORY AND PHYSICAL Page 1 of 1 X Rosi Lizama X HISTORY AND PHYSICAL
--- NOTE | ~2016-12-22 | FU ---
[facility] Nutrition Therapy DATE: 01/01/17 Patient: YOLANDE MCRAE Physician: GEORGIE Address: [address] Room/Bed: [address], Zip: [place] [address] Admit Date: 12/22/16 Date of : 57 Height: Weight: 119 54.43 NUTRITION MONITORING/FOLLOW-UP: Reason: NUTRITION F/U FOR CONSULT "LARGE WOUND, LOW PROTEIN, MULTI MED ISSUES" PATIENT WAS ADMITTED FOR PSYCHOSIS AND DELUSIONS Anthropometrics: HT: 5'4", WT: 119#, BMI: 19.8 - NO WEIGHT CHANGES Labs: 12/31/16- K: 3.4, ALB: 3.0, AST: A45, ALT: 57 Meds: COGENTIN, ABILIFY, OXYCONTIN, HALOPERIDOL, KLOR-CON, SYNTHROID, FUROSEMIDE, VALIUM Assessment: PATIENT CONTINUES TO HAVE CONFUSION, PSYCHOSIS, AND PARANOIA AT TIMES. SHE HAS INTERMITTENT ANGER AND WILL CURSE AT STAFF. PATIENT WAS SEND OUT TO [facility] ON 12/31/16 D/T BLE SWELLING AND INCREASED REDNESS. SHE HAS A STAGE 3 WOUND ON HER R-LOWER LEG. NURSING REPORTS CONSISTENTLY FAIR PO INTAKES. SHE REQUIRES ASSISTANCE AND PROMPTING DURING MEALS, AND SHE HAS BEEN AMBULATING IN HER W/C. PATIENT IS ON A REGULAR DIET WITH LARGE PORTION ENTREES, AND SHE RECEIVES ENSURE TID FOR ADDED NUTRIENT SUPPORT. THERE ARE NO GI ISSUES NOTED ATT. CURRENT MEDICATIONS MAY CAUSE FLUCTUATIONS IN WEIGHT AND APPETITE. Dx: INADEQUATE NUTRIENT INTAKE R/T CURRENT CONDITION, DX AEB FAIR PO INTAKE AND APPETITE, SELF-REPORTED WEIGHT LOSS- SLIGHT IMPROVEMENT! NO WEIGHT CHANGE SINCE ADMIT Intervention: REGULAR DIET, SUPPLEMENTATION, MEDS PER MD, PSYCH Monitoring, Evaluation and Goals: 1. ADEQUATE PO INTAKES >50% OF MEALS 2. PREVENT, CORRECT MICRO/MACRO NUTRIENT DEFICIENCIES 3. MAINTAIN CURRENT WEIGHT, PREVENT WEIGHT LOSS MONITOR: WEIGHTS, LABS, PO/FLUID INTAKES Recommendations: 1. CONTINUE REGULAR DIET WITH ENSURE TID TOLERATED. RECOMMEND D/Cing LARGE PORTION ENTREE D/T NO NUTRITIONAL NEED FOR EXCESSIVE CALORIC INTAKE. PATIENT IS ABLE TO MEET NUTRIENT NEEDS FROM REGULAR MEALS AND ENSURE 2. CONTINUE TO PROMPT PATIENT AND ENCOURAGE ADEQUATE PO AND FLUID INTAKES 3. OBTAIN WEIGHTS ROUTINELY (EVERY 3-4 DAYS) 4. CONSIDERE ADDING A MVI TO PATIENT'S MEDICATION REGIMEN FOR ADDED NUTRIENT SUPPORT AND TO PROMOTE WOUND HEALING [facility] Nutrition Therapy DATE: 01/01/17 Patient: YOLANDE MCRAE Physician: GEORGIE Address: [address] [place] [address] Room/Bed: P132-2 [facility], Zip: [place] [address] Admit Date: 12/22/16 Date of : 57 Height: Weight: [address] TO F/U PER PROTOCOL AND PRN R/T PATIENT MILDLY COMPROMISED Status: Respectfully, MAHESH DAWSON, RD, LD [facility] cc: client file
--- NOTE | ~2016-12-22 | PN ---
Unit #: [id number] #: [id number] Patient: NINI MCRAE [id number] [facility] [address] [place] [address] [id number] MR#: [id number] NAME: NINI MCRAE. ROOM: 15 Age: 61 Sex: F Admission Date: 12/22/2016 : 1955 Attending Physician: Ney Reyes M.D. Admitting Physician: Ney Reyes M.D. Primary Care Physician: Bryant Murguia PROGRESS NOTES DATE 12/25/2016. DISCUSSION Nini Mcrae is a 61-year-old female seen on 12/25/2016. The patient was interviewed, chart reviewed and obtained information from the nursing staff. The patient continues to be delusional, paranoid, poor boundaries, poor insight, poor judgment. The patient's vital signs are 98.2, 93, 16, 131/59. The patient is needing a lot of prompting, paranoid, attending to internal stimuli. The patient was (1) from her leg as well as from the past issues. Therefore, ordered medical consultation. The patient denied any thoughts of harming self of others, but having the above mentioned psychotic symptoms. Complete review of systems unremarkable. MENTAL STATUS EXAMINATION General appearance, the patient is dressed casually in hospital attire. Attention span and concentration poor. Oriented to place. Mood and affect labile. Speech monotone. Thought process circumstantial. The patient is scheduled to have MIAW hearing. Still having disorganized behavior. Affect, bizarre behavior. Paranoid. Denied any thoughts of harming self or others. Recent and remote memory poor. Insight and judgment poor. DIAGNOSIS Schizophrenia, chronic, paranoid type. ASSESSMENT/PLAN Advised to continue with current medications and therapy protocol. Will monitor response to medication and make further adjustments. Dictated by... Ney Reyes M.D. LETTY/reinaldo TD: 12/26/2016 09:59 JOB #: [id number] Unit #: [id number] #: [id number] Patient: NINI MCRAE PROGRESS NOTES Page 1 of 1 X Amy,Ney CERVANTES X PROGRESS NOTE
[~2016-12-22 01:38] MED LIST: ALDACTONE100 MG PO; BACLOFEN20 M1 PO; BACLOFEN20 MG PO; CELEXA20 MG PO; CEPHALEXIN250 MG PO; CLEOCIN HCL300 M1 PO; COLACE PO; DIAZEPAM PO; DIAZEPAM10 MG PO; FLAGYL250 M1 PO; FLORASTOR250 M1 PO; FUROSEMIDE40 MG PO; IBUPROFEN800 MG PO; K-DUR20 ME1 PO; K-TAB ER20 MEQ PO; KEFLEX PO; LIDODERM30 EA TOP; MACROBID100 M1 PO; OXYCODON HCL-AP1 TA2 PO; PHENERGAN12.5 MG PO; PHENERGAN25 M1 PO; PROAIR HFA8.5 GM INH; SYNTHROID25 MCG PO; VITAMIN B-1000 MCG/1 IJ; ZOFRAN ODT4 MG PO
[2016-12-23 08:02] LABS: THYROID STIMULATING HORMONE 2.69 uIU/ml (0.34-5.60)
[2016-12-23 08:09] LABS: FREE THYROXIN (T4) 1.4 ng/dL (0.58-1.64)
[2016-12-24 09:39] LABS: BUN/CREATININE RATIO 22.5; CALCIUM SERUM 8.4 mg/dL (8.4-10.2); CREATININE SERUM 0.8 mg/dL (0.6-1.4); GLOM FILT RATE Estimated 80.2 mL/min (>60); POTASSIUM 4.4 mmol/L (3.5-5.1)
[2016-12-26 10:03] LABS: ALBUMIN SERUM 2.6 g/dL (3.5-5.0); BILIRUBIN,TOTAL 1.7 mg/dL (0.2-2.0); BUN/CREATININE RATIO 33.75; CALCIUM SERUM 8.4 mg/dL (8.4-10.2); CREATININE SERUM 0.8 mg/dL (0.6-1.4); GLOM FILT RATE Estimated 80.2 mL/min (>60); PROTEIN TOTAL SERUM 6.1 g/dL (6.0-8.3)
[2016-12-26 10:28] LABS: BASOPHIL% 0.9 % (0-2.5); HEMATOCRIT 31.4 % (35.0-45.0); HEMOGLOBIN 10.4 gm/dL (12.0-16.0); LYMPHOCYTE# 1.1 X10e3 (1.0-3.5); LYMPHOCYTE% 25.8 % (17.0-45.0); MEAN CORPUSCULAR HEMOGLOBIN 31.1 PG (28-34); MEAN CORPUSCULAR HGB CONC 33.1 g/dL (30-36); MEAN PLATELET VOLUME 9.2 FL (6.5-11.5); MONOCYTE# 0.5 X10e3 (0-1.0); MONOCYTE% 11.1 % (3.0-12.0); NEUTROPHIL# 2.6 X10e3 (1.5-7.1); NEUTROPHIL% 61.2 % (40-75); RED BLOOD COUNT 3.34 X10e (3.90-5.30); RED CELL DISTRIBUTION WIDTH 14.3 % (11.0-15.5); WHITE BLOOD COUNT 4.3 X10e3 (4.0-10.5)
[2016-12-26 11:14] LABS: DIFF IND YES; PLATELET COUNT 67 X10e3 (140-420)
[2016-12-26 11:17] LABS: ANISOCYTOSIS SL; PLATELET ESTIMATE DECREASED (NORMAL); POIKILOCYTOSIS SL; RBC NORMAL YES
== END 2017-01-07 17:08 | disposition home or self-care (01) | DRG 885 ==
LOC: P1S 01:38
PROVIDERS: Psychiatry & Neurology Psychiatry
DX: F20.0 Paranoid schizophrenia (principal); K74.60 Unspecified cirrhosis of liver; F31.89 Other bipolar disorder; N39.0 Urinary tract infection, site not specified; J44.9 Chronic obstructive pulmonary disease, unspecified; E03.9 Hypothyroidism, unspecified; Z90.49 Acquired absence of other specified parts of digestive tract; Z88.2 Allergy status to sulfonamides; Z88.0 Allergy status to penicillin; Z91.013 Allergy to seafood; F17.210 Nicotine dependence, cigarettes, uncomplicated; E53.8 Deficiency of other specified B group vitamins; G89.29 Other chronic pain
CPT/HCPCS: 36415; 71010; 73590; 80048; 80053; 80076; 80307; 81003; 82140; 83605; 84439; 84443; 85025; 87040; 87086; 87088; 87186; 93005; 94640; 96365; 99284; 99285; G0480; J2060; J3370